=== PATIENT | female | born 1950 | race Caucasian/White ===

== ENCOUNTER 2018-10-21 09:30 | Day surgery (SDC) | payer OTHER ==
[~2018-10-21] VITALS: Ht 165.1 cm; Wt 61.7 kg
[~2018-10-21 09:30] MED LIST: Aspir 8181 MG; Estrace Vagin42.5 GM; LOSA50
--- NOTE | 2018-10-21 10:22 | NUR ---
10/21/18 1022 Anay Bass V PT TEACHING COMPLETED WITH PT AND PT'S , BOTH DENY QUESTIONS AT THIS TIME. PT STATES SHE IS COMFORTABLE AND DOES NOT NEED ANYTHING AT THIS TIME.
== END 2018-10-21 11:30 | disposition home or self-care (01) ==
LOC: ORSCSDS 09:30
PROVIDERS: Internal Medicine Gastroenterology
PROC: 0DJD8ZZ Inspection of Lower Intestinal Tract, Via Natural or Artificial Opening Endoscopic (ICD-10-PCS; principal; 2018-10-21 11:00)
DX: Z12.11 Encounter for screening for malignant neoplasm of colon (principal); K64.8 Other hemorrhoids; K57.30 Diverticulosis of large intestine without perforation or abscess without bleeding; I10 Essential (primary) hypertension; Z87.891 Personal history of nicotine dependence; Z79.82 Long term (current) use of aspirin; Z79.899 Other long term (current) drug therapy
CPT/HCPCS: J0461; J7120

== ENCOUNTER → 2019-09-09 | Outpatient (CLI) | payer OTHER | END | disposition home or self-care (01) | LOC: LAB EV 10:52 → LAB SHORT 10:52 | DX: J02.9 Acute pharyngitis, unspecified (principal) | CPT/HCPCS: 87081 ==

== ENCOUNTER 2024-08-31 09:23 | Day surgery (SDC) | payer OTHER ==
[~2024-08-31] VITALS: Ht 162.6 cm; Wt 49.8 kg
[~2024-08-31 09:23] MED LIST changes: +Lactated Ringer's 1,000 ML IV ONE; +propofoL 50 ML IV ONE
[2024-08-31] MEDS ORDERED: Vitamin D1000 UNI1 (10:37)
[2024-08-31] MEDS ORDERED: TOCO1000 (10:37)
[2024-08-31] MEDS ORDERED: FISH OIL 1,0001 EA10 (10:39)
[2024-08-31] MEDS ORDERED: CALCIUM CITRAT250 MG (10:40)
[2024-08-31] MEDS ORDERED: TELM40 (10:40)
[2024-08-31] MEDS ORDERED: Lactated Ringer's 1,000 ML IV ONE (11:19)
[2024-08-31] MEDS ORDERED: propofoL 50 ML IV ONE (12:06)
[2024-08-31 12:41] VITALS: BP 134/64
== END 2024-08-31 13:06 | disposition home or self-care (01) ==
LOC: ORSCSDS 09:23
PROVIDERS: Specialist
PROC: 0D758ZZ Dilation of Esophagus, Via Natural or Artificial Opening Endoscopic (ICD-10-PCS; principal; 2024-08-31 10:45)
PROC: 0DB98ZX Excision of Duodenum, Via Natural or Artificial Opening Endoscopic, Diagnostic (ICD-10-PCS; principal; 2024-08-31 10:45)
PROC: 0DB68ZX Excision of Stomach, Via Natural or Artificial Opening Endoscopic, Diagnostic (ICD-10-PCS; principal; 2024-08-31 10:45)
PROC: 0DJD8ZZ Inspection of Lower Intestinal Tract, Via Natural or Artificial Opening Endoscopic (ICD-10-PCS; principal; 2024-08-31 10:45)
PROC: 0DB58ZX Excision of Esophagus, Via Natural or Artificial Opening Endoscopic, Diagnostic (ICD-10-PCS; principal; 2024-08-31 10:45)
DX: R13.10 Dysphagia, unspecified (principal); Q39.4 Esophageal web; R63.4 Abnormal weight loss; R19.4 Change in bowel habit; K64.8 Other hemorrhoids; K57.30 Diverticulosis of large intestine without perforation or abscess without bleeding; I10 Essential (primary) hypertension; Z79.899 Other long term (current) drug therapy
CPT/HCPCS: 88305; 88342; C1769; J2704; J7120

== ENCOUNTER → 2025-05-17 | Outpatient (CLI) | payer OTHER ==
[~2025-05-17] MED LIST changes: +CALCIUM CITRAT250 MG; +FISH OIL 1,0001 EA10; -Lactated Ringer's 1,000 ML IV ONE; +TELM40; +TOCO1000; +Vitamin D1000 UNI1; -propofoL 50 ML IV ONE
[2025-05-18 17:45] LABS: Campylobacter Sp Not Detected (NOT DETECT); E. Coli O157 Not Detected (NOT DETECT); Enteroaggregative E. coli-EAEC Not Detected (NOT DETECT); Enteropathogenic E. coli-EPEC Not Detected (NOT DETECT); Enterotoxigenic E. coli-ETEC Not Detected (NOT DETECT); Salmonella Sp Not Detected (NOT DETECT); Shiga Toxin-prod E. coli-STEC Not Detected (NOT DETECT); Shigella/Enteroin E. coli-EIEC Not Detected (NOT DETECT); Vibrio Sp Not Detected (NOT DETECT)
== END ==
LOC: LAB 06:30 → LAB SHORT 06:30 → LAB FUT 05-13 11:40
PROVIDERS: Family Medicine
DX: G60.0 Hereditary motor and sensory neuropathy (principal); R10.9 Unspecified abdominal pain
CPT/HCPCS: 87507

== ENCOUNTER 2025-09-01 12:45 | Day surgery (SDC) | payer OTHER ==
[~2025-09-01] VITALS: Ht 165.1 cm; Wt 48.4 kg
[~2025-09-01 12:45] MED LIST changes: +Glycopyrrolate 0.2 MG/ML 1MLVIAL ONE; +Ondansetron HCl 2 MG / ML 2ML Vial ONE; +ePHEDrine Sulfate 50 MG/ML 1ML Injection ONE
[2025-09-01] MEDS ORDERED: TELMISARTAN-HC1 EAC5 (13:09)
[2025-09-01] MEDS ORDERED: Lovastatin20 MG (13:09)
[2025-09-01 14:51] VITALS: BP 123/62
== END 2025-09-01 14:56 | disposition home or self-care (01) ==
LOC: ORSCSDS 12:45
PROVIDERS: Specialist
PROC: 0D758ZZ Dilation of Esophagus, Via Natural or Artificial Opening Endoscopic (ICD-10-PCS; principal; 2025-09-01 14:30)
DX: R13.10 Dysphagia, unspecified (principal); K22.2 Esophageal obstruction; I10 Essential (primary) hypertension; Z87.891 Personal history of nicotine dependence
CPT/HCPCS: C1769; J0461; J2003; J2405; J2704; J7120; Q9968